=== PATIENT | male | born 1940 | race Caucasian/White ===

== ENCOUNTER 2018-07-30 12:24 | Day surgery (SDC) | payer MEDICARE, BC ==
[~2018-07-30 12:24] MED LIST: MIDAZOLAM 2 MG/2 ML SOL ONE
[2018-07-30] MEDS: CYCLOPENTOLATE 1% SOL ONE ×3 (14:01→14:07)
[2018-07-30] MEDS: PHENYLEPHRINE HCL 10% OPHTHAL SOL ONE ×3 (14:01→14:07)
[2018-07-30] MEDS: TROPICAMIDE 1% OPHTH SOL ONE ×3 (14:01→14:08)
[2018-07-30] MEDS ORDERED: KETOROLAC/HOME 0.5% SOL RIGHTEYE ONE ×3 (14:02→14:08)
[2018-07-30] MEDS ORDERED: MOXIFLOXACIN-HOME SOL RIGHTEYE ONE ×2 (14:02→14:05)
[2018-07-30] MEDS: TETRACAINE HCL 0.5 % 1 DROP SOL ONE ×2 (14:08→14:23)
[2018-07-30] MEDS ORDERED: POVIDONE IODINE 5% SOL ONE (14:11)
[2018-07-30] MEDS ORDERED: BSS W/ 0.5 MG P.F. EPI 1 BOTTLE ONE (14:11)
[2018-07-30] MEDS: LIDOCAINE HCL 2% MPF 10 ML SOL ONE ×2 (14:24→14:28)
[2018-07-30 15:05] VITALS: BP 128/80; PULSE 60; RESP 18; TEMP 97.2; O2SAT 95
[2018-07-30] MEDS ORDERED: ACETAZOLAMIDE 250 MG PO ONE (15:07)
[2018-07-30] MEDS ORDERED: ACETAZOLAMIDE 500 MG CER PO ONE (15:25)
== END 2018-07-30 15:30 | disposition home or self-care (01) | DRG 125 ==
LOC: SURG 12:24
PROVIDERS: ATTEND Ophthalmology
DX: H25.89 Other age-related cataract (principal); E11.9 Type 2 diabetes mellitus without complications
CPT/HCPCS: 82962; J2250; A9270-GY

== ENCOUNTER 2018-08-13 10:03 | Day surgery (SDC) | payer MEDICARE, BC ==
[2018-08-13 10:25] VITALS: RESP 18
[2018-08-13] MEDS: PHENYLEPHRINE HCL 10% OPHTHAL SOL ONE ×3 (10:30→10:37)
[2018-08-13] MEDS: CYCLOPENTOLATE 1% SOL ONE ×3 (10:30→10:38)
[2018-08-13] MEDS: TROPICAMIDE 1% OPHTH SOL ONE ×3 (10:31→10:38)
[2018-08-13] MEDS ORDERED: KETOROLAC/HOME 0.5% SOL LEFTEYE ONE ×3 (10:31→10:38)
[2018-08-13] MEDS ORDERED: MOXIFLOXACIN-HOME SOL LEFTEYE ONE ×2 (10:32→10:35)
[2018-08-13] MEDS: TETRACAINE HCL 0.5 % 1 DROP SOL ONE ×2 (10:39→12:06)
[2018-08-13] MEDS ORDERED: MIDAZOLAM 2 MG/2 ML SOL ONE (11:53)
[2018-08-13] MEDS ORDERED: LIDOCAINE HCL 2% MPF 10 ML SOL ONE (11:53)
[2018-08-13] MEDS ORDERED: BSS W/ 0.5 MG P.F. EPI 1 BOTTLE ONE (11:53)
[2018-08-13] MEDS ORDERED: POVIDONE IODINE 5% SOL ONE (11:53)
[2018-08-13] MEDS ORDERED: ACETAZOLAMIDE 250 MG PO ONE (12:29)
[2018-08-13] MEDS ORDERED: ACETAZOLAMIDE 500 MG CER PO ONE (12:40)
[2018-08-13 12:45] VITALS: BP 163/94; PULSE 57; TEMP 97.4; O2SAT 97
== END 2018-08-13 13:07 | disposition home or self-care (01) | DRG 125 ==
LOC: SURG 10:03
PROVIDERS: ATTEND Ophthalmology
DX: H25.89 Other age-related cataract (principal); E11.9 Type 2 diabetes mellitus without complications
CPT/HCPCS: J2250; A6402; A9270-GY